=== PATIENT | female | born 1940 | race Caucasian/White ===

== ENCOUNTER 2022-04-17 02:26 | Inpatient (IN) ==
[2022-04-17] MEDS ORDERED: ONDANSETRON 4 MG/2 ML VIAL IV STA (03:13)
[2022-04-17] MEDS ORDERED: ALBUTEROL/IPRATROPIUM 3 ML NEB RESP TX STA (03:13)
[2022-04-17] MEDS ORDERED: MORPHINE 2 MG/1 ML SYRINGE IV STA (03:13)
[2022-04-17] MEDS ORDERED: FUROSEMIDE 100 MG/10 ML VIAL IV STA (03:13)
[2022-04-17] MEDS ORDERED: ASPIRIN 325 MG TABLET PO STA (03:13)
[2022-04-17] MEDS ORDERED: methylPREDNISolone SOD SUC 125 MG/2 ML VIAL IV STA (03:13)
[2022-04-17 03:39] LABS: Basophils # 0.1 10*3/uL (0.0-0.2); Basophils % 0.4 % (0.0-0.8); Eosinophils # 0.2 10*3/uL (0.0-0.87); Eosinophils % 1.2 % (0.00-10.9); Hematocrit 37.3 VOL% (35.7-47.0); Immature Granulocytes % 0.5 %; Immature Granulocytes Absolute 0.08 #; Lymphocytes # 1.1 10*3/uL (1.4-4.0); Lymphocytes % 6.8 % (21.3-54.2); Mean Corpuscular HGB Conc 32.2 GM/DL (32-36); Mean Platelet Volume 10.1 FL (9.6-12.0); Monocytes # 0.7 10*3/uL (0.11-0.8); Monocytes % 4.1 % (1.7-12.7); Platelet Count 274 T/CUMM (130-400); Red Cell Distribution Width 13.7 % (9.3-17.3); White Blood Count 15.97 T/CUMM (4-12)
[2022-04-17 03:59] LABS: INR 0.9; PT Patient Result 10.4 SECS (10.1-12.1); Partial Thromboplastin Time 23.1 SECS (23.7-32.9)
[2022-04-17 04:02] LABS: Arterial Base Excess iSTAT 1 MMOL/L (-2.5-2.5); Arterial Bicarbonate iSTAT 24.3 MMOL/L (20-26); Arterial O2 Saturation iSTAT 100 % (95-100); Arterial PCO2 iSTAT 32 MM HG (35-48); Arterial PO2 iSTAT 164 MM HG (80-95); Arterial Total CO2 iSTAT 25 MMO/L (23-27); Arterial pH iSTAT 7.483 (7.35-7.45)
[2022-04-17 04:03] LABS: Alanine Aminotransferase 38 U/L (13-56); Albumin 3.6 G/DL (3.4-5.0); Alkaline Phosphatase 115 U/L (45-117); Aspartate Amino Transferase 29 U/L (0-37); Bilirubin,Total < 0.39 MG/DL (0.20-1.00); Blood Urea Nitrogen 17 MG/DL (7-18); Calcium 9.1 MG/DL (8.5-10.1); Carbon Dioxide 27 MMOL/L (21-32); Chloride 102 MMOL/L (98-107); Glucose 194 MG/DL (74-106); Osmolality,Calculated 279.8 MOS/KG (273-304); Potassium 4.3 MMOL/L (3.5-5.1); Sodium 137 MMOL/L (136-145); Total Protein 7.1 G/DL (6.4-8.2)
[2022-04-17] MEDS ORDERED: hydrALAZINE 20 MG/1 ML VIAL IV PRN (05:43)
[2022-04-17] MEDS ORDERED: POTASSIUM CHLORIDE 20 MEQ TABLET PO PRN (05:43)
[2022-04-17] MEDS ORDERED: MORPHINE 2 MG/1 ML SYRINGE IV PRN (05:43)
[2022-04-17] MEDS ORDERED: ACETAMINOPHEN 325 MG TABLET PO PRN (05:43)
[2022-04-17] MEDS ORDERED: ONDANSETRON 4 MG/2 ML VIAL IV PRN (05:43)
[2022-04-17] MEDS ORDERED: CYCLOBENZAPRINE 10 MG TABLET PO PRN (06:30)
[2022-04-17] MEDS: cefTRIAXone 1,000 MG in SODIUM CHLORIDE 0.9% 100 ML IV SCH (06:55)
[2022-04-17] MEDS: ALBUTEROL/IPRATROPIUM 3 ML NEB RESP TX SCH ×3 (07:55→19:08)
[2022-04-17] MEDS: ENOXAPARIN 40 MG/0.4 ML SYRINGE SUBCUT SCH (09:46)
[2022-04-17] MEDS: AZITHROMYCIN INJ 500 MG in SODIUM CHLORIDE 0.9% 250 ML IV SCH (09:46)
[2022-04-17] MEDS: ZINC SULFATE 220 MG CAPSULE PO SCH (09:46)
[2022-04-17] MEDS: ASCORBIC ACID 500 MG TABLET PO SCH (09:46)
[2022-04-17] MEDS: CLOPIDOGREL 75 MG TABLET PO SCH (09:46)
[2022-04-17] MEDS: PANTOPRAZOLE 40 MG TABLET PO SCH (09:46)
[2022-04-17] MEDS: FUROSEMIDE 40 MG/4 ML VIAL IV SCH (16:33)
[2022-04-17 18:34] LABS: Bilirubin,Urine Negative (Negative); Blood, Urine Negative (Negative); Glucose,Urine (UA) Negative (Negative); Ketones,Urine Negative (Negative); Nitrite,Urine Positive (Negative); Protein,Urine Negative (Negative); Urine Appearance Clear (Clear); Urine Color Yellow (Yellow); Urine Urobilinogen 0.2 eU/dL (<2.0)
[2022-04-17 18:37] LABS: Hyaline Casts,Urine 13 /LPF (0-3); Mucus,Urine Occasional /LPF (Occasional); RBC,Urine 5 /HPF (0-4); Squamous Epithelial Cell,Urine Occasional /HPF (0-10)
[2022-04-17] MEDS: NEBIVOLOL 10 MG TABLET PO SCH (21:51)
[2022-04-17] MEDS: ZALEPLON 5 MG CAPSULE PO PRN (23:23)
[2022-04-18 05:21] LABS: Basophils % 0.1 % (0.0-0.8); Eosinophils % 0.1 % (0.00-10.9); Hematocrit 33.3 VOL% (35.7-47.0); Hemoglobin 10.6 GM/DL (12.0-16.0); Immature Granulocytes % 0.7 %; Immature Granulocytes Absolute 0.09 #; Lymphocytes % 15.3 % (21.3-54.2); Mean Corpuscular HGB Conc 31.8 GM/DL (32-36); Mean Corpuscular Volume 92.2 FL (87-102); Mean Platelet Volume 10.6 FL (9.6-12.0); Monocytes % 7.6 % (1.7-12.7); Neutrophils % 76.2 % (38.7-73.9); Platelet Count 254 T/CUMM (130-400); Red Blood Count 3.61 MC/CUMM (3.8-5.5)
[2022-04-18 05:44] LABS: Calcium 8.8 MG/DL (8.5-10.1); Potassium 4.2 MMOL/L (3.5-5.1)
[2022-04-18 05:49] LABS: Risk Ratio 3.54
[2022-04-18] MEDS: cefTRIAXone 1,000 MG in SODIUM CHLORIDE 0.9% 100 ML IV SCH (06:42)
[2022-04-18] MEDS ORDERED: DIAZEPAM 5 MG TABLET PO ONE (07:00)
[2022-04-18] MEDS ORDERED: diphenhydrAMINE CAP 25 MG CAPSULE PO ONE (07:00)
[2022-04-18] MEDS: ALBUTEROL/IPRATROPIUM 3 ML NEB RESP TX SCH ×5 (07:40→20:33)
[2022-04-18] MEDS: AZITHROMYCIN INJ 500 MG in SODIUM CHLORIDE 0.9% 250 ML IV SCH (10:13)
[2022-04-18] MEDS ORDERED: HEPARIN/NACL 0.9% 2 UNITS/ML 2,000 UNIT/1,000 ML BAG IV ONE (11:16)
[2022-04-18] MEDS ORDERED: MIDAZOLAM 2 MG/2 ML VIAL ONE ×2 (11:37→12:11)
[2022-04-18] MEDS ORDERED: fentaNYL 100 MCG/2 ML VIAL ONE (11:38)
[2022-04-18] MEDS ORDERED: ASPIRIN 325 MG TABLET ONE (11:47)
[2022-04-18] MEDS ORDERED: SODIUM CHLORIDE 0.9% 1,000 ML IV SCH (13:00)
[2022-04-18] MEDS: CLOPIDOGREL 75 MG TABLET PO SCH (14:50)
[2022-04-18] MEDS: ASCORBIC ACID 500 MG TABLET PO SCH (14:50)
[2022-04-18] MEDS: NEBIVOLOL 10 MG TABLET PO SCH ×2 (14:50→20:27)
[2022-04-18] MEDS: PANTOPRAZOLE 40 MG TABLET PO SCH (14:50)
[2022-04-18] MEDS: ENOXAPARIN 40 MG/0.4 ML SYRINGE SUBCUT SCH ×2 (14:51→14:57)
[2022-04-18] MEDS: ZINC SULFATE 220 MG CAPSULE PO SCH (14:53)
[2022-04-18] MEDS: FUROSEMIDE 40 MG/4 ML VIAL IV SCH (17:30)
[2022-04-18] MEDS: ZALEPLON 5 MG CAPSULE PO PRN (23:36)
[2022-04-19] MEDS: ALBUTEROL/IPRATROPIUM 3 ML NEB RESP TX SCH ×4 (02:28→19:34)
[2022-04-19 04:39] LABS: Basophils % 0.4 % (0.0-0.8); Eosinophils # 0.2 10*3/uL (0.0-0.87); Eosinophils % 2.4 % (0.00-10.9); Hematocrit 33.4 VOL% (35.7-47.0); Hemoglobin 10.8 GM/DL (12.0-16.0); Immature Granulocytes % 0.5 %; Immature Granulocytes Absolute 0.05 #; Lymphocytes # 1.9 10*3/uL (1.4-4.0); Lymphocytes % 20.1 % (21.3-54.2); Mean Corpuscular HGB Conc 32.3 GM/DL (32-36); Mean Corpuscular Volume 91.3 FL (87-102); Mean Platelet Volume 10.3 FL (9.6-12.0); Monocytes # 0.7 10*3/uL (0.11-0.8); Monocytes % 7.2 % (1.7-12.7); Neutrophils % 69.4 % (38.7-73.9); Platelet Count 260 T/CUMM (130-400); Red Blood Count 3.66 MC/CUMM (3.8-5.5); Red Cell Distribution Width 14.1 % (9.3-17.3); White Blood Count 9.56 T/CUMM (4-12)
[2022-04-19 04:54] LABS: Calcium 8.6 MG/DL (8.5-10.1); Osmolality,Calculated 277.7 MOS/KG (273-304); Potassium 3.7 MMOL/L (3.5-5.1)
[2022-04-19] MEDS: cefTRIAXone 1,000 MG in SODIUM CHLORIDE 0.9% 100 ML IV SCH (06:15)
[2022-04-19] MEDS: CLOPIDOGREL 75 MG TABLET PO SCH (10:53)
[2022-04-19] MEDS: ASCORBIC ACID 500 MG TABLET PO SCH (10:53)
[2022-04-19] MEDS: PANTOPRAZOLE 40 MG TABLET PO SCH (10:53)
[2022-04-19] MEDS: SPIRONOLACTONE 25 MG TABLET PO SCH (10:54)
[2022-04-19] MEDS: NEBIVOLOL 10 MG TABLET PO SCH ×2 (10:54→20:13)
[2022-04-19] MEDS: ENOXAPARIN 40 MG/0.4 ML SYRINGE SUBCUT SCH (10:54)
[2022-04-19] MEDS: AZITHROMYCIN INJ 500 MG in SODIUM CHLORIDE 0.9% 250 ML IV SCH (10:55)
[2022-04-19] MEDS: ZINC SULFATE 220 MG CAPSULE PO SCH (12:21)
[2022-04-19] MEDS: FUROSEMIDE 40 MG/4 ML VIAL IV SCH ×2 (12:22→13:12)
[2022-04-19] MEDS: SACUBITRIL/VALSARTAN 49-51 MG TABLET PO SCH (21:31)
[2022-04-20] MEDS: ALBUTEROL/IPRATROPIUM 3 ML NEB RESP TX SCH ×4 (02:04→19:23)
[2022-04-20] MEDS: cefTRIAXone 1,000 MG in SODIUM CHLORIDE 0.9% 100 ML IV SCH (06:01)
[2022-04-20 06:14] LABS: Calcium 8.9 MG/DL (8.5-10.1); Osmolality,Calculated 276.7 MOS/KG (273-304)
[2022-04-20] MEDS: ASCORBIC ACID 500 MG TABLET PO SCH (09:55)
[2022-04-20] MEDS: PANTOPRAZOLE 40 MG TABLET PO SCH (09:55)
[2022-04-20] MEDS: ZINC SULFATE 220 MG CAPSULE PO SCH (09:55)
[2022-04-20] MEDS: AZITHROMYCIN INJ 500 MG in SODIUM CHLORIDE 0.9% 250 ML IV SCH (09:55)
[2022-04-20] MEDS: CLOPIDOGREL 75 MG TABLET PO SCH (09:56)
[2022-04-20] MEDS: SACUBITRIL/VALSARTAN 49-51 MG TABLET PO SCH ×2 (09:56→21:31)
[2022-04-20] MEDS: NEBIVOLOL 10 MG TABLET PO SCH ×2 (09:56→21:31)
[2022-04-20] MEDS: SPIRONOLACTONE 25 MG TABLET PO SCH (09:56)
[2022-04-20] MEDS: ENOXAPARIN 40 MG/0.4 ML SYRINGE SUBCUT SCH (09:56)
[2022-04-20] MEDS: FUROSEMIDE 20 MG TABLET PO SCH (09:56)
[2022-04-20] MEDS: ZALEPLON 5 MG CAPSULE PO PRN (22:53)
[2022-04-21] MEDS: ALBUTEROL/IPRATROPIUM 3 ML NEB RESP TX SCH ×2 (00:39→07:00)
[2022-04-21] MEDS: cefTRIAXone 1,000 MG in SODIUM CHLORIDE 0.9% 100 ML IV SCH (06:25)
[2022-04-21 08:24] LABS: Basophils % 0.5 % (0.0-0.8); Eosinophils # 0.4 10*3/uL (0.0-0.87); Eosinophils % 4.5 % (0.00-10.9); Hematocrit 38.1 VOL% (35.7-47.0); Hemoglobin 11.9 GM/DL (12.0-16.0); Immature Granulocytes % 0.3 %; Immature Granulocytes Absolute 0.03 #; Lymphocytes # 1.6 10*3/uL (1.4-4.0); Lymphocytes % 18.1 % (21.3-54.2); Mean Corpuscular HGB Conc 31.2 GM/DL (32-36); Mean Corpuscular Volume 91.4 FL (87-102); Mean Platelet Volume 9.8 FL (9.6-12.0); Monocytes # 0.6 10*3/uL (0.11-0.8); Monocytes % 7.4 % (1.7-12.7); Neutrophils % 69.2 % (38.7-73.9); Platelet Count 281 T/CUMM (130-400); Red Blood Count 4.17 MC/CUMM (3.8-5.5); Red Cell Distribution Width 14.1 % (9.3-17.3); White Blood Count 8.69 T/CUMM (4-12)
[2022-04-21 08:39] LABS: Osmolality,Calculated 275.8 MOS/KG (273-304); Potassium 4.2 MMOL/L (3.5-5.1)
[2022-04-21] MEDS: SACUBITRIL/VALSARTAN 49-51 MG TABLET PO SCH (09:54)
[2022-04-21] MEDS: SPIRONOLACTONE 25 MG TABLET PO SCH (09:54)
[2022-04-21] MEDS: NEBIVOLOL 10 MG TABLET PO SCH (09:54)
[2022-04-21] MEDS: ZINC SULFATE 220 MG CAPSULE PO SCH (09:55)
[2022-04-21] MEDS: FUROSEMIDE 20 MG TABLET PO SCH (09:55)
[2022-04-21] MEDS: CLOPIDOGREL 75 MG TABLET PO SCH (09:55)
[2022-04-21] MEDS: PANTOPRAZOLE 40 MG TABLET PO SCH (09:55)
[2022-04-21] MEDS: AZITHROMYCIN INJ 500 MG in SODIUM CHLORIDE 0.9% 250 ML IV SCH (09:55)
[2022-04-21] MEDS: ASCORBIC ACID 500 MG TABLET PO SCH (09:55)
[2022-04-21] MEDS: ENOXAPARIN 40 MG/0.4 ML SYRINGE SUBCUT SCH (09:56)
[2022-04-21 12:53] VITALS: BP 97/55
== END 2022-04-21 12:36 | disposition home health service (06) | DRG 286 ==
LOC: SUATTDRO → N.ED 02:26 → N.TELES 07:40
PROVIDERS: ADMIT Emergency Medicine; ATTEND Internal Medicine
PROC: CLCCHCL (ICD-10-PCS; 2022-04-18 11:45)